=== PATIENT | male | born 1985 | race Two or more races ===

== ENCOUNTER 2024-02-19 21:47 | Emergency (ER) | payer OTHER ==
[~2024-02-19] VITALS: Ht 180.3 cm; Wt 133.8 kg
[2024-02-20] MEDS ORDERED: ORPHENADRINE CITRATE 30 MG/ML AMPUL IM STA (00:14)
[2024-02-20] MEDS ORDERED: KETOROLAC TROMETHAMINE 60 MG VIAL IM STA (00:15)
[2024-02-20] MEDS ORDERED: NORFLEX100MG PO (02:25)
[2024-02-20] MEDS ORDERED: KETO10TA2 PO (02:25)
== END 2024-02-20 02:31 ==
LOC: ER 21:48
DX: S76.811A Strain of other specified muscles, fascia and tendons at thigh level, right thigh, initial encounter (principal)

== ENCOUNTER 2025-11-12 09:56 | Emergency (ER) | payer OTHER ==
[~2025-11-12] VITALS: Ht 180.3 cm; Wt 133.8 kg
[~2025-11-12 09:56] MED LIST: KETO10TA2 PO; NORFLEX100MG PO
[2025-11-12] MEDS ORDERED: KETOROLAC TROMETHAMINE 60 MG VIAL IM ONE (10:45)
[2025-11-12] MEDS ORDERED: DEXAMETHASONE SODIUM PHOSPHATE 4 MG/ML VIAL IM ONE (10:45)
[2025-11-12] MEDS ORDERED: MEDROLPACK PO (14:40)
[2025-11-14] MEDS ORDERED: ALL DAY ALLERGY10 M3 PO (22:20)
[2025-11-14] MEDS ORDERED: MUCINEX DM ER1 EAC1 PO (22:20)
[2025-11-14] MEDS ORDERED: ACETAMINOPHEN500 M2 PO (22:20)
[2025-11-14] MEDS ORDERED: OSEL75CA PO (22:20)
== END 2025-11-12 15:16 | disposition home or self-care (01) ==
LOC: ER 09:57
DX: M77.8 Other enthesopathies, not elsewhere classified (principal); M79.641 Pain in right hand; M79.642 Pain in left hand
CPT/HCPCS: 73030; 73130; 96372; 99284; J1100; J1885